=== PATIENT | male | born 1990 | race Caucasian/White ===

== ENCOUNTER 2017-12-07 01:02 | Emergency (ER) | payer BC ==
[~2017-12-07 01:02] MED LIST: Z.0.NO CURRENT MEDS
[2017-12-07 01:07] VITALS: BP 139/67; PULSE 91; RESP 18; TEMP 97; O2SAT 98
[2017-12-07] MEDS ORDERED: ADDE30TA PO (01:13)
--- NOTE | 2017-12-07 01:42 | RADRPT ---
EXAM DATE: 12/07/2017 1:38 AM EDT AGE/SEX: 27 years / Male INDICATIONS: Punched wall, pain in 5th metacarpal. CLINICAL DATA: This is the patient's initial encounter. Patient reports that signs and symptoms have been present for 1 day and indicates a pain score of 10/10. MEDICAL/SURGICAL HISTORY: None. None. COMPARISON: No prior exams available for comparison. FINDINGS: There is a complete fracture of the metacarpal bone with slight polar angulation. CONCLUSION: Fifth metacarpal fracture. Electronically signed by: Danielle Daniels MD 12/07/2017 1:41 AM EDT
[2017-12-07] MEDS ORDERED: oxyCODONE/ACETAMINOPHEN 5 MG/325 MG TAB PO ONE (01:45)
[2017-12-07] MEDS ORDERED: IBUP1TAB7 PO (02:31)
[2017-12-07] MEDS ORDERED: TYLETAB34 PO (02:31)
--- NOTE | 2017-12-07 02:32 | PD ---
HPI Chief Complaint: Injury Time Seen by Provider: 01:13 Travel History International Travel<30 days: No Contact w/Intl Traveler<30days: No Traveled to known affect area: No History of Present Illness HPI Patient is a 27-year-old male presenting to the emergency department for evaluation of right hand pain after he punched a post. Patient states the pain is a 7 out of 10, throbbing, constant in nature. Patient admits to drinking alcohol this evening. He denies any weakness or numbness in his right hand. He reports chronic deformity of the right fifth finger. Patient has no other complaints at this time. Symptom onset was sudden, symptoms are moderate in nature. There are no alleviating factors. Pain is exacerbated with movement of his hand. PFSH Past Medical History Medical History: Denies Significant Hx Diminished Hearing: No Immunizations Current: Yes Past Surgical History Other Surgery: Yes (NOSE - DEVIATED SEPTUM) Social History Alcohol Use: Yes Tobacco Use: No Substance Use: No Allergies-Medications (Allergen,Severity, Reaction): Coded Allergies: No Known Allergies (Verified Allergy, Mild, 12/07/17) Reported Meds & Prescriptions Reported Meds & Active Scripts Active Tylenol-Codeine #3 (Acetaminophen-Codeine) 300-30 mg Tab 1 Tab PO Q4H PRN Ibuprofen 800 Mg Tab 800 Mg PO Q6HR PRN Reported Adderall (Amphetamine-Dextroamphetamine) 30 Mg Tab 30 Mg PO BID Avoid late evening doses. Space doses at least 4 to 6 hours if more than once/day dosing. No Current Meds (Miscellaneous Medication) Misc Review of Systems Except as stated in HPI: all other systems reviewed are Neg Musculoskeletal: Positive: Arthralgias, Edema, Pain Physical Exam Narrative GENERAL: Well-developed, well-nourished, alert male. Presenting in no acute distress. SKIN: Warm and dry. HEAD: Normocephalic. EYES: No scleral icterus. No injection or drainage. NECK: Supple, trachea midline. No JVD or lymphadenopathy. CARDIOVASCULAR: Regular rate and rhythm without murmurs, gallops, or rubs. RESPIRATORY: Breath sounds equal bilaterally. No accessory muscle use. GASTROINTESTINAL: Abdomen soft, non-tender, nondistended. MUSCULOSKELETAL: No cyanosis, mild edema over the fifth MCP on the right hand. 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 Decreased armored truck driver strength with the right fifth finger, this is chronic in nature. Brisk capillary refill. 2+ radial pulse. BACK: Nontender without obvious deformity. No CVA tenderness. Data Data Last Documented VS Vital Signs Date Time Temp Pulse Resp B/P (MAP) Pulse Ox O2 Delivery O2 Flow Rate FiO2 12/07/17 01:07 97.0 91 18 139/67 (91) 98 Room Air Orders Orders Hand, Complete ([id number]) (12/07/17 ) Ice/Cold Pack (12/07/17 01:14) Oxycodone-Acetamin 5-325 Mg (Percocet (12/07/17 01:45) Splinting (12/07/17 ) Fiberglass Splint Forearm Adul (12/07/17 ) Ed Discharge Order (12/07/17 02:55) MDM Medical Decision Making Medical Screen Exam Complete: Yes Emergency Medical Condition: Yes Interpretation(s) Last Impressions Hand X-Ray 12/07/17 0000 Signed Impressions: CONCLUSION: Fifth metacarpal fracture. Vital Signs Date Time Temp Pulse Resp B/P (MAP) Pulse Ox O2 Delivery O2 Flow Rate FiO2 12/07/17 01:07 97.0 91 18 139/67 (91) 98 Room Air Differential Diagnosis Fracture versus sprain versus strain versus contusion versus other Narrative Course Patient is a 19-year-old male presenting to emergency depart for evaluation of right hand pain after punching a a post. Patient is neurovascularly intact. Imaging ordered and pending. X-ray shows a right fifth metacarpal fracture. Patient will be splinted. Patient was given Percocet for pain as well as an ice pack. Patient will need to follow-up with a hand surgeon or orthopedic surgeon. He was encouraged to rest, ice, elevate extremity. He was encouraged to ibuprofen as needed and as directed for pain. He was encouraged return to emergency department any new or worsening symptoms. Diagnosis Primary Impression: Fracture of fifth metacarpal bone Qualified Codes: S62.356A - Nondisplaced fracture of shaft of fifth metacarpal bone, right hand, initial encounter for closed fracture Referrals: Melania Loja MD 1 week Hand Surgeon 1 week Patient Instructions: General Instructions, Hand Fracture (ED) Additional Instructions: Follow-up with a hand surgeon Rest, ice, elevate extremity Take medication as needed and as directed for pain Return to emergency department for any new worsening symptoms Med/Other Pt SpecificInfo: Prescription(s) given Scripts Acetaminophen-Codeine (Tylenol-Codeine #3) 300-30 mg Tab 1 TAB PO Q4H Y for PAIN, #12 TAB 0 Refills Prov: Rema White 12/07/17 Ibuprofen (Ibuprofen) 800 Mg Tab 800 MG PO Q6HR Y for PAIN, #40 TAB 0 Refills Prov: Rema White 12/07/17 Disposition: 01 DISCHARGE HOME Condition: Stable Rema White December 07, 2017 02:32
== END 2017-12-07 03:10 | disposition home or self-care (01) ==
LOC: NEPD 01:02
DX: S62.356A Nondisplaced fracture of shaft of fifth metacarpal bone, right hand, initial encounter for closed fracture (principal); W22.09XA Striking against other stationary object, initial encounter
CPT/HCPCS: 29125; 73130